=== PATIENT | female | born 1985 | race Caucasian/White ===

== ENCOUNTER 2023-01-18 20:29 | Outpatient (REF) | payer OTHER, SELFPAY ==
[2023-01-22 16:11] LABS: Age Gdln ACOG Testing Note (.); HPV Aptima Negative (Negative); IGP, Aptima HPV, rfx 16/18,45 Note (.)
== END 2023-01-18 20:30 | disposition home or self-care (01) ==
LOC: LAB 20:29
PROVIDERS: Visit Provider Obstetrics & Gynecology
DX: Z01.419 Encounter for gynecological examination (general) (routine) without abnormal findings (principal)
CPT/HCPCS: 87624; G0145

== ENCOUNTER 2023-03-19 08:50 | Outpatient (OUT) | payer OTHER, SELFPAY ==
--- OUTSIDE RECORDS SUMMARY | 2023-03-19 08:56 | XMS_ITS | CCD ---
Author Name Unknown Address [address] [facility] [address] [place] [address] Organization [facility] Care Team Providers Care Resident Care Spec Name Role Phone COMPA, DR ELIZABET Colunga Admitting Unavailable WEST, DR ELIZABET Colunga Attending Unavailable WEST, DR ELIZABET Colunga Consulting Unavailable WEST, DR ELIZABET Colunga Admitting Unavailable WEST, DR ELIZABET Colunga Attending Unavailable WEST, DR ELIZABET Colunga Consulting Unavailable GRZEGORZ ., DR DESIR Admitting Unavailable GRZEGORZ ., DR DESIR Attending Unavailable GRZEGORZ ., DR DESIR Consulting Unavailable GRZEGORZ, Karlee R Referring Unavailable GRZEGORZ, Karlee R Attending Unavailable GRZEGORZ, Karlee R Admitting Unavailable GRZEGORZ, KARLEE Attending Unavailable GRZEGORZ, KARLEE Attending Unavailable Allergies Allergy Classification Reported Allergen(s) Allergy Type Date of Onset Reaction(s) Facility (1 source) Cat; Translations: [Cats] Propensity to adverse reactions (disorder) [facility] Repository (1 source) Minocycline; Translations: [minocycline] Drug Allergy [facility] Repository Problems Problem Classification Problem Date Documented Date Episodic/Chronic Immunizations and screening for infectious disease (1 source) Encounter for screening for human papillomavirus (HPV); Translations: [ENC SCREENING HUMAN PAPILLOMAVIRUS] Onset: 01-19-2022 Episodic Other screening for suspected conditions (not mental disorders or infectious disease) (4 sources) Encounter for screening for malignant neoplasm of cervix; Translations: [ENC SCREENING MALIG NEOPLASM CERV] Onset: 01-16-2022 Episodic Results Test Name Value Interpretation Reference Range Facil ity US Pelvis Non-OB Completeon 02-02-2023 US Pelvis Non-OB Complete Exam Date/Time: 02/01/2023 12:21 EST Reason for Exam: N93.9, R10.2 Report IMPRESSION: Negative pelvic ultrasound. CLINICAL HISTORY: N93.9, R10.2 COMPARISONS: None available. TECHNICAL FACTORS: Transabdominal and transvaginal sonography with transvaginal imaging was obtained to better assess pelvic anatomy. FINDINGS: Uterus: Normal in size, shape, and echogenicity. Endometrium: Normal in appearance. Intrauterine device identified within endometrial canal. Right ovary: Normal in size, shape, and echogenicity. Color flow and Doppler without anomaly. Left ovary: Normal in size, shape, and echogenicity. Left ovarian follicle. Color flow and Doppler without anomaly. Free fluid: None Adnexal masses: None The uterus measurements and an estimated volume are: Uterus Length: 9.1 cm Uterus Width: 5.5 cm Uterus Height: 4.0 cm Uterus Volume: 104.0 cm3 Endometrium Thickness: 0.3 cm The right ovary measurements and an estimated volume are: Right Ovary Length: 2.7 cm Right Ovary Width: 2.0 cm Right Ovary Height: 2.2 cm Right Ovary Volume: 6.1 cm3 The left ovary measurements and an estimated volume are: Left Ovary Length: 2.7 cm Left Ovary Width: 2.6 cm Report Left Ovary Height: 2.0 cm Left Ovary Volume: 7.7 cm3 Ordering Provider: Karlee LANTIGUA FINAL REPORT Dictated: 02/02/2023 10:44 am Bonifacio Hussein MD Signed (Electronic Signature): 02/02/2023 10:44 am Signed by: Bonifacio Hussein MD Transcribed by: JENNIFER Technologist: MONICA Technical Comments Transabdominal Ultrasound Performed Normal [facility] Consent for Treatmenton 01-07 Consent for Treatment [id number] 0TIFF Normal [facility] Physician Orderon 01-22-2023 Physician Order [id number]#1.00 TIFF Normal [facility] PAP ACOG PANEL 2: 30 to 65on 01-23-2022 . . Normal [facility] Comment on above: Result Comment: Perf ormed at: WB Performed By: #### [id number] #### [facility] [address] [place] [address] Dr. Tiffanie Patel Age Gdln ACOG Testing 30-65 Normal [facility] Comment on above: Performed By: #### 4 [id number] #### [facility] [address] [place] [address] Dr. Tiffanie Patel DIAGNOSIS: Comment Normal [facility] Comment on above: Result Comment: NEGA TIVE FOR INTRAEPITHELIAL LESION OR MALIGNANCY. Performed at: WB Performed By: #### 4 [id number] #### [facility] [address] [address] [address] Tiffanie Patel HPV Aptima Negative Normal Negative [facility] Comment on above: Result Comment: This nucleic acid amplification test detects fourteen high-risk HPV types (16,18,31,33,35,39,45,51,52,56,58,59,66,68) without differentiation. Performed at: =G Performed By: #### 4 [id number] #### [facility] [address] [place] [address] Dr. Tiffanie Patel HPV Genotype Reflex Comment Normal [facility] Comment on above: Result Comment: Crit eria not met, HPV Genotype not performed. Performed at: WB Performed By: #### 4 [id number] #### [facility] [address] [place] [address] Dr. Tiffanie Patel Methodology: Comment Normal [facility] Comment on above: Result Comment: This liquid based ThinPrep(R) pap test was screened with the use of an image guided system. Performed at: WB Performed By: #### 4 [id number] #### [facility] [address] [place] [address] Dr. Tiffanie Patel Note: Comment Normal [facility] Comment on above: Result Comment: The Pap smear is a screening test designed to aid in the detection of premalignant and malignant conditions of the uterine cervix. It is not a diagnostic procedure and should not be used as the sole means of detecting cervical cancer. Both false-positive and false-negative reports do occur. . Performed at: WB Performed By: #### 4 [id number] #### [facility] [address] [place] [address] Dr. Tiffanie Patel Performed by: Comment Normal [facility] Comment on above: Result Comment: Osvaldo Morrow Rail Operator (ASCP) Performed at: WB Performed By: #### 4 [id number] #### [facility] [address] [place] [address] Dr. Tiffanie Patel Specimen adequacy: Comment Normal [facility] Comment on above: Result Comment: Sati sfactory for evaluation. Endocervical and/or squamous metaplastic cells (endocervical component) are present. Performed at: WB Performed By: #### 4 [id number] #### [facility] [address] [place] [address] Dr. Tiffanie Patel SARS-CoV-2 RNA Resp Ql NANDA+p robeon 07-25-2021 SARS-CoV-2 (COVID-19) RNA NANDA+probe Ql (Resp) COVID 19 RESULT: SARS-CoV-2 (Agent of COVID-19) Not Detected by RT-PCR or equivalent method. This test was developed and its performance characteristics determined by [facility] [place]. This test has been authorized by FDA under an Emergency Use Authorization (EUA). This test has been validated in accordance with the FDA's Guidance Document Policy for Diagnostics Testing in Laboratories Certified to Perform High Complexity Testing under CLIA prior to Emergency use Authorization for Coronavirus Disease 2019 during the Public Health Emergency issued on May 06, 2019. Test performed by [facility], [facility] [place], [address] [place] [address]. Normal [facility] Comment on above: Performed By: #### 9 [id number] #### [facility] CLIA [id number] [address] [place] [address] [place] Encounters Encounter Date Encounter Type Care Provider Facility Start: 03-15-2023 End: 03-15-2023 ambulatory KARLEE LANTIGUA Not Available Start: 02-01-2023 End: 02-02-2023 ambulatory Karlee LANTIGUA Facility:[facility] Start: 01-18-2023 End: 01-18-2023 ambulatory KARLEE LANTIGUA Not Available Start: 04-30-[address] ELIZABET Ervin y:H1 Start: 01-16-2022 End: 01-16-[address] KARLEE LANTIGUA . Facility: Start: 07-09-2021 End: 10-30-[address] ELIZABET CHATMAN Facility:H1 Payers Date Payer Category Payer Unknown 2018 Unknown [id number] 1985 Unknown [id number] 2.16.84 [id number] 1985 Unknown [id number] 2.16.84 [id number] 1986 Unknown [id number] 2.16.84 [id number] 1986 Unknown [id number] 2.16.8 [id number] 1986 Unknown [id number] 2.16.840 .[id number] 1986 Unknown [id number]. [id number] 1959 Self-pay 1958 Unknown [id number] Summary Purpose Family History No Family History Records FoundNo Family History Records FoundNo Family History Records FoundNo Family History Records Found Advance Directives No Advanced Directives Records FoundNo Advanced Directives Records FoundNo Advanced Directives Records FoundNo Advanced Directives Records Found Additional Source Comments INFORMATION SOURCE (unrecogn ized section and content) DATE CREATED AUTHOR 07/27/2021 [facility] DATE CREATED AUTHOR AUTHOR'S ORGANIZ ATION 05/01/2022 [facility] DATE CREATED AUTHOR AUTHOR'S ORGANIZ ATION 02/03/2023 [facility] DATE CREATED AUTHOR AUTHOR'S ORGANIZ ATION 03/15/2023 [facility] FOR RECORDS PERTAINING TO PATIENTS WHO ARE OR HAVE BEEN ENROLLED IN A CHEMICAL DEPENDENCY/SUBSTANCEABUSE PROGRAM, SOME INFORMATION MAY BE OMITTED. This clinical summary was aggregated from multiple sources. Caution should be exercised in using it in the provision of clinical care. This summary normalizes information from multiple sources, and as a consequence, information in this document may materially change the coding, format and clinical context of patient data. In addition, data may be omitted in some cases. CLINICAL DECISIONS SHOULD BE BASED ON THE PRIMARY CLINICAL RECORDS. [facility]. provides no warranty or guarantee of the accuracy or completeness of information in this document.
== END 2023-03-19 08:51 | disposition home or self-care (01) ==
LOC: PST 08:52
PROVIDERS: Visit Provider Obstetrics & Gynecology
DX: Z01.818 Encounter for other preprocedural examination (principal); Z30.2 Encounter for sterilization; N92.0 Excessive and frequent menstruation with regular cycle; N93.9 Abnormal uterine and vaginal bleeding, unspecified; R10.2 Pelvic and perineal pain; F43.10 Post-traumatic stress disorder, unspecified

== ENCOUNTER 2023-04-02 08:13 | Day surgery (SDC) | payer OTHER, SELFPAY ==
[2023-03-19 09:39] VITALS: BP 95/66; PULSE 77; RESP 14; TEMP 36.4; O2SAT 98; BMI 24.4
[2023-04-02] VITALS (11 sets, daily range): BP systolic 95–116; BP diastolic 56–74; PULSE 79–121; RESP 10–19; TEMP 36.2–36.3; O2SAT 98–100; BMI 24.1
--- OUTSIDE RECORDS SUMMARY | 2023-04-02 08:16 | XMS_ITS | CCD ---
Author Name Unknown Address [address] [facility] [address] [place] [id number] Organization [facility] Care Team Providers Care Buck Presser Name Role Phone COMPA, DR ELIZABET Colunga [...] Translations: [Cats] Propensity to adverse reactions (disorder) [facility] Repository (1 source) Minocycline; Translations: [minocycline] Drug Allergy [facility] Repository Problems Problem Classification Problem Date Documented [...] MONICA Technical Comments Transabdominal Ultrasound Performed Normal [facility] Consent for Treatmenton 01-07 Consent for Treatment [id number] 0TIFF Normal [facility] Physician Orderon 01-22-2023 Physician Order [id number]#1.00 TIFF Normal [facility] PAP ACOG PANEL 2: 30 to 65on 01-23-2022 . . Normal [facility] Comment on above: Result Comment: Perf ormed at: WB Performed By: #### 4 [id number] #### [facility] [address] [place] [address] Dr. Tiffanie Patel Age Gdln ACOG Testing 30-65 Normal [facility] Comment on above: Performed By: #### 4 [id number] #### [facility] [address] [place] [address] Dr. Tiffanie Patel DIAGNOSIS: Comment Normal [facility] Comment on above: Result Comment: NEGA TIVE FOR INTRAEPITHELIAL LESION OR MALIGNANCY. Performed at: WB Performed By: #### 4 [id number] #### [facility] [address] [address] [address] Tiffanie Patel HPV Aptima Negative Normal Negative [facility] Comment on above: Result Comment: This nucleic acid amplification test detects fourteen high-risk HPV types (16,18,31,33,35,39,45,51,52,56,58,59,66,68) without differentiation. Performed at: =G Performed By: #### 4 [id number] #### [facility] [address] [place] [address] Dr. Tiffanie Patel HPV Genotype Reflex Comment Normal [facility] Comment on above: Result Comment: Crit eria not met, HPV Genotype not performed. Performed at: WB Performed By: #### 4 [id number] #### [facility] [address] [place] [address] Dr. Tiffanie Patel Methodology: Comment Normal [facility] Comment on above: Result Comment: This liquid based ThinPrep(R) pap test was screened with the use of an image guided system. Performed at: WB Performed By: #### 4 [id number] #### [facility] [address] [place] [address] Dr. Tiffanie Patel Note: Comment Normal [facility] Comment on above: Result Comment: The Pap smear is a screening test designed to aid in the detection of premalignant and malignant conditions of the uterine cervix. It is not a diagnostic procedure and should not be used as the sole means of detecting cervical cancer. Both false-positive and false-negative reports do occur. . Performed at: WB Performed By: #### 4 [id number] #### [facility] [address] [place] [address] Dr. Tiffanie Patel Performed by: Comment Normal [facility] Comment on above: Result Comment: Osvaldo Morrow Machine Egg Washer (ASCP) Performed at: WB Performed By: #### 4 [id number] #### [facility] [address] [place] [address] Dr. Tiffanie Patel Specimen adequacy: Comment Normal The [facility] Comment on above: Result Comment: Sati sfactory for evaluation. Endocervical and/or squamous metaplastic cells (endocervical component) are present. Performed at: WB Performed By: #### 4 [id number] #### [facility] [address] [place] [address] Dr. Tiffanie Patel SARS-CoV-2 RNA Resp Ql NANDA+p robeon 07-25-2021 SARS-CoV-2 (COVID-19) RNA NANDA+probe Ql (Resp) COVID 19 RESULT: SARS-CoV-2 (Agent of COVID-19) Not Detected by RT-PCR or equivalent method. This test was developed and its performance characteristics determined by [facility] [place]. This test has been authorized by FDA under an Emergency Use Authorization (EUA). This test has been validated in accordance with the FDA's Guidance Document Policy for Diagnostics Testing in Laboratories Certified to Perform High Complexity Testing under CLIA prior to Emergency use Authorization for Coronavirus Disease 2019 during the Public Health Emergency issued on May 06, 2019. Test performed by [facility], [facility] [place], [address] [place] [address]. Normal [facility] Comment on above: Performed By: #### 9 [id number] #### [facility] CLIA [id number] [address] [place] [address] [place] Encounters Encounter Date Encounter Type Care Provider Facility Start: 03-15-2023 End: 03-15-2023 ambulatory KARLEE LANTIGUA Not Available Start: 02-01-2023 End: 02-02-2023 ambulatory Karlee LANTIGUA [place] Start: 01-18-2023 End: 01-18-2023 ambulatory KARLEE LANTIGUA Not Available Start: 04-30-[address] ELIZABET Ervin y:H1 Start: 01-16-2022 End: 01-16-[address] KARLEE LANTIGUA . Facility: Start: 07-09-2021 End: 10-30-[address] ELIZABET CHATMAN Facility:H1 Payers Date Payer Category Payer Unknown 2018 Unknown [id number] 1985 Unknown [id number] 2.16.84 [id number] 1986 Unknown [id number] 2.16.84 [id number] 1986 Unknown [id number] 2.16.84 [id number] 1986 Unknown [id number] 2.16.8 [id number] 1986 Unknown [id number] 2.16.840 .[id number] 1986 Unknown [id number] 2.16.840. [id number] 1959 Self-pay 1958 Unknown [id number] Summary Purpose Family History No Family History Records FoundNo Family History Records FoundNo Family History Records FoundNo Family History Records Found Advance Directives No Advanced Directives Records FoundNo Advanced Directives Records FoundNo Advanced Directives Records FoundNo Advanced Directives Records Found Additional Source Comments INFORMATION SOURCE (unrecogn ized section and content) DATE CREATED AUTHOR 07/27/2021 [facility] DATE CREATED AUTHOR AUTHOR'S ORGANIZ ATION 05/01/2022 [facility] DATE CREATED AUTHOR AUTHOR'S ORGANIZ ATION 02/03/2023 [facility] DATE CREATED AUTHOR AUTHOR'S ORGANIZ ATION 03/15/2023 [facility] dical Specialists [facility] FOR RECORDS PERTAINING TO PATIENTS [...] BE BASED ON THE PRIMARY CLINICAL RECORDS. [facility]. provides no warranty or guarantee of the accuracy or completeness of information in this document.
[2023-04-02 08:23] LABS: Basophils Absolute Auto 0.1 10^3/uL (0.0-0.1); Eosinophils Absolute Auto 0.2 10^3/uL (0.0-0.7); Eosinophils Percent Auto 3.5 % (0.9-7.0); Hematocrit 38.3 % (36.0-48.0); Hemoglobin 13.1 g/dL (12.0-16.0); Immature Granulocytes Abs Auto 0.02 10^3/uL (0.00-0.03); Immature Granulocytes Pct Auto 0.3 % (0.0-0.5); Lymphocytes Absolute Auto 2.7 10^3/uL (1.2-3.8); Lymphocytes Percent Auto 39.5 % (20.5-60.0); Mean Corpuscular HGB Conc 34.2 g/dL (29.9-35.2); Mean Corpuscular Hemoglobin 29.8 pg (26.7-34.0); Mean Corpuscular Volume 87.2 fL (81.0-99.0); Mean Platelet Volume 10.1 fL (9.5-13.5); Monocytes Absolute Auto 0.6 10^3/uL (0.3-0.8); Monocytes Percent Auto 8.5 % (1.7-12.0); Neutrophils Absolute Auto 3.3 10^3/uL (1.4-6.5); Neutrophils Percent Auto 47.2 % (43.0-75.0); Platelet Count 321 10^3/uL (150-450); Red Blood Count 4.39 10^6/uL (4.20-5.40); Red Cell Distribution Width 11.6 % (11.0-15.0); White Blood Count 6.9 10^3/uL (4.0-11.0)
[2023-04-02] MEDS: FAMOTIDINE 20 MG TABLET PO (08:42)
[2023-04-02] MEDS: LACTATED RINGER'S SOLUTION 1,000 ML 50 ML IV (08:42)
[2023-04-02] MEDS: SCOPOLAMINE 1 MG/3 DAYS TRANSDERM PATCH 1 PATCH TD (08:42)
[2023-04-02 08:49] LABS: HCG Quantitative <1 mIU/mL
--- NOTE | 2023-04-02 12:32 | PM.ONB ---
Brief Operative Note Date of procedure: 04/02/23 Pre-op diagnosis: menorrhagia, desires permanent sterilization Post-op diagnosis: same as pre-op Procedure: NAME OF PROCEDURE: robotic assisted Laparoscopic bilateral salpingectomy, with Yolande endometrial ablation with hysteroscopy embx and removal of iud PROCEDURE: The patient was taken back to the OR where she was prepped and draped in the normal sterile fashion after being placed in the dorsal lithotomy position, after being placed under general anesthesia without difficulty. a weighted speculum was then placed into the vagina. Pap and endometrial bx were performed without difficultyThe anterior lip was grasped with a single tooth tenaculum. The patient was then sounded to approximatley 9cm. The patient was gently sounded using Hegar dilators and the hysteroscope was passed through the cervix into the uterus where both ostia were seen. No gross evidence of polyps, fibroids or malignancy. The cervical length was noted to be 4cm. The Yolande ablation apparatus was set to approximately 5cm in length. This was placed in through the cervix and into the uterus. After the seal was tested, at that time the total ablation of 120 seconds was performed with the Yolande without difficulty. All instruments were removed from the vagina. A wet sponge stick was placed into the patient's vagina. Attention was then turned to the patient's abdomen, where a scalpel was used to make a small infraumbilical incision. The S retractors were then used to dissect the underlying layers until the fascia could be seen. The fascia was then grasped with Daneglo clamps and tented up. A knife was then used to make a small incision to the fascia. The muscle was identified, at that time two sutures of #0 Vicryl on a GI needlewas then used and placed through the fascia. The peritoneum was then identified and entered bluntly. The 10-4 Chiquita was then placed into the patient's abdomen. This was confirmed with direct visualization of the bowel, using the laparoscope. The patient's abdomen was then insufflated using approximately 4 liters of CO2 gas. Survey of the patient's abdomen demonstrated normal appearing ovaries, uterus and tubes. A second and third lateral robotic ports, which was 8mm in size, was then placed laterally after incision was made in the skin under direct visualization. the robotic arms were engaged. The patient's tube on the patient's right side was identified. The tube was then tented up using a grasper. The ligasure was used to transect and coagulate the mesosalpingx from the fimbriated end to the insertion at the uterus, the tube was amputated and removed in its entirety.? Excellent hemostasis was noted. ?This was performed on the contralateral sideas well. The lateral ports were then moved under direct visualization with excellent hemostasis. The abdomen was deinsufflated. All instruments were removed from the patient's abdomen. The fascia was closed using the #0 Vicryl on GI needle. The skin was closed using 4-0 Vicryl subcuticularly. All instruments were removed from the patient's vagina as well. The patient was taken out of the dorsal lithotomy position and placed in the supine position and taken to recovery in stable condition. Sponge, lap and needle counts were correct x2. ???Please note embx was performed using a pipette and iud was removed using polyp forceps without difficulty Anesthesia: ISABELLE Surgeon: Jose J Murrell Customer Support Executive: Christina Bernard Estimated blood loss (mL): 5 Pathology: other (tubes) Condition: stable Disposition: PACU Urinary Catheter Management Urinary Catheter Management Urethral: Cath placed during this visit: no
[2023-04-02] MEDS: PROMETHAZINE HCL 25 MG TABLET PO (13:12)
[2023-04-02] MEDS: HYDROCODONE/ACET 5-325 MG TABLET 1 TAB PO (13:45)
== END 2023-04-02 15:08 | disposition home or self-care (01) ==
PROVIDERS: Visit Provider Obstetrics & Gynecology
PROC: (CPT 840; principal; 2023-04-02 09:30)
DX: Z30.2 Encounter for sterilization (principal); N92.0 Excessive and frequent menstruation with regular cycle; N93.9 Abnormal uterine and vaginal bleeding, unspecified; R10.2 Pelvic and perineal pain; F43.10 Post-traumatic stress disorder, unspecified; Z87.891 Personal history of nicotine dependence
CPT/HCPCS: 58100; 58301; 58563; 58661; 36415; 84702; 85025; 88302; 88305; J0330; J1100; J1170; J1885; J2250; J2405; J2704; J3010; Q0169

== ENCOUNTER 2023-07-22 09:24 | Outpatient (OUT) | payer OTHER, SELFPAY ==
--- NOTE | 2023-07-22 09:35 | US_ITS ---
Patient Name: VICKY CALHOUN MR#: [id number] : 1985 Exam Date: 07/22/2023 Ordering Doctor: SUSANNA De . RADIOLOGY REPORT PROCEDURE: US BREAST LT LIMITED COMPARISON: None. INDICATIONS: Mass Of Left Breast N63.20, Generalized Enlarged Lymph Node TECHNIQUE: Breast ultrasound was performed, with evaluation focusing only on specific areas of concern. FINDINGS: DIAGNOSTIC CATEGORY 2--BENIGN FINDING: LEFT BREAST: Patient has known accessory/ectopic breast tissue inferior to left breast within which the patient has a palpable lump. Ultrasound evaluation demonstrates a 6 mm anechoic benign-appearing cyst at the 5 o'clock position corresponding to patient's palpable lump. No additional follow-up recommended. RECOMMENDATIONS: CLINICAL EVALUATION. PLEASE NOTE: A NORMAL ULTRASOUND EXAMINATION DOES NOT EXCLUDE THE POSSIBILITY OF BREAST CANCER. A CLINICALLY SUSPICIOUS PALPABLE LUMP SHOULD BE BIOPSIED. Dictated by: Abbe Calvillo M.D. on 07/22/2023 at 10:16 Approved by: bAbe Calvillo M.D. on 07/22/2023 at 10:18
== END 2023-07-22 09:25 | disposition home or self-care (01) ==
LOC: US 09:25
PROVIDERS: Visit Provider Physician Assistant
DX: N63.20 Unspecified lump in the left breast, unspecified quadrant (principal); R59.1 Generalized enlarged lymph nodes; N60.02 Solitary cyst of left breast
CPT/HCPCS: 76642